=== PATIENT | male | born 1965 | race African-American/Black ===

== ENCOUNTER 2019-12-17 08:34 | Emergency (ER) | payer SELFPAY ==
[~2019-12-17] VITALS: Ht 167.6 cm; Wt 82.6 kg
[2019-12-17 09:43] LABS: Alanine Aminotransferase 22 U/L (16-61); Albumin 4.6 g/dL (3.4-5.0); Anion Gap 9 (5-15); Aspartate Aminotransferase 19 U/L (15-37); BUN/Creatinine Ratio 7.5; Blood Urea Nitrogen 13 mg/dL (7-18); Calcium 8.9 mg/dL (8.5-10.1); Carbon Dioxide 21 mmol/L (21-32); Chloride 108 mmol/L (98-107); GFR African American 53 mL/min; GFR Non-African American 44 mL/min; Glucose 136 mg/dL (74-106); Potassium 4.1 mmol/L (3.5-5.1); Sodium 138 mmol/L (136-145)
[2019-12-17 09:48] LABS: Alkaline Phosphatase 51 U/L (45-117); Bilirubin, Total 1.4 mg/dL (0.2-1.0); INR 1.16 (0.9-1.15); Partial Thromboplastin Time 28.6 sec (23.64-32.05); Total Protein 8.1 g/dL (6.4-8.2)
[2019-12-17] MEDS ORDERED: ONDANSETRON HCL 4 MG/2 ML VIAL IV ONE ×2 (10:00→15:15)
[2019-12-17] MEDS ORDERED: MORPHINE SULF INJ 2 MG/ML SYRINGE 1ML IV ONE ×2 (10:00→15:15)
[2019-12-17 10:07] LABS: Basophils # (auto) 0 10 ^3/uL (0-0.2); Basophils % (auto) 0.5 % (0.0-2.0); Eosinophils # (auto) 0.2 10 ^3/uL (0-0.8); Eosinophils % (auto) 1.9 % (0.0-7.0); Hematocrit 48.9 % (41.0-53.0); Hemoglobin 15.9 g/dL (13.5-17.5); Lymphocytes # (auto) 1.1 10 ^3/uL (0.4-5.4); Lymphocytes % (auto) 12.5 % (10.0-50.0); Mean Corpuscular Hemoglobin 30.2 pg (28.0-32.0); Mean Corpuscular Hgb Conc. 32.5 g/dL (32.0-36.0); Monocytes # (auto) 0.6 10 ^3/uL (0-1.3); Monocytes % (auto) 6.6 % (0.0-12.0); Neutrophils # (auto) 6.6 10 ^3/uL (1.6-8.6); Neutrophils % (auto) 78.5 % (37.0-80.0); Platelet Count (auto) 174 10^3/uL (140-450); Red Blood Cells 5.26 10^6/uL (4.5-5.90); Red Cell Distribution Width 14.3 % (11.8-14.3); White Blood Cell 8.5 10^3/uL (4.4-10.8)
[2019-12-17] MEDS ORDERED: KETOROLAC TROMETH 30 MG/ML 1ML VIAL IV ONE (12:00)
[2019-12-17 14:02] LABS: Urine Bacteria NONE SEEN /hpf (None Seen); Urine Blood TRACE /uL (Negative); Urine Budding Yeast OCCASIONAL /hpf (None Seen); Urine Mucus FEW (None Seen); Urine Specific Gravity 1.025 (1.001-1.035); Urine WBC 1 /hpf (0 - 3)
[2019-12-17] MEDS ORDERED: LABETALOL HCL 5 MG/ML 4ML SYRINGE IV ONE (16:00)
[2019-12-17 16:51] VITALS: BP 122/103
[2019-12-24] MEDS ORDERED: ASPI-543 PO (18:26)
[2019-12-24] MEDS ORDERED: CYCL10TA6 PO (18:26)
== END 2019-12-17 17:02 | disposition home or self-care (01) ==
LOC: ER 08:34
DX: R07.89 Other chest pain (principal); M47.816 Spondylosis without myelopathy or radiculopathy, lumbar region; I69.354 Hemiplegia and hemiparesis following cerebral infarction affecting left non-dominant side; I12.9 Hypertensive chronic kidney disease with stage 1 through stage 4 chronic kidney disease, or unspecified chronic kidney disease; N18.3 Chronic kidney disease, stage 3 (moderate); E78.5 Hyperlipidemia, unspecified; F12.10 Cannabis abuse, uncomplicated
CPT/HCPCS: 36415; 71046; 72100; 80053; 81001; 84484; 85025; 85610; 85730; 93005; 96374; 96375; 96376; 99285; J1885; J2270; J2405; J3490

== ENCOUNTER 2019-12-23 13:28 | Inpatient (IN) | payer MEDICARE ==
[~2019-12-23] VITALS: Ht 167.6 cm; Wt 90.5 kg
[2019-12-23] MEDS ORDERED: ASPirin 81 mg TAB PO ONE (13:45)
[2019-12-23 14:46] LABS: Basophils # (auto) 0 10 ^3/uL (0-0.2); Basophils % (auto) 0.5 % (0.0-2.0); Eosinophils # (auto) 0.3 10 ^3/uL (0-0.8); Eosinophils % (auto) 4.3 % (0.0-7.0); Hematocrit 41.9 % (41.0-53.0); Lymphocytes # (auto) 1.4 10 ^3/uL (0.4-5.4); Lymphocytes % (auto) 20.8 % (10.0-50.0); Mean Corpuscular Hemoglobin 30.8 pg (28.0-32.0); Mean Corpuscular Hgb Conc. 33.4 g/dL (32.0-36.0); Mean Corpuscular Volume 92.2 fL (80.0-100.0); Monocytes # (auto) 0.5 10 ^3/uL (0-1.3); Monocytes % (auto) 7.1 % (0.0-12.0); Neutrophils # (auto) 4.6 10 ^3/uL (1.6-8.6); Neutrophils % (auto) 67.3 % (37.0-80.0); Platelet Count (auto) 147 10^3/uL (140-450); Red Blood Cells 4.55 10^6/uL (4.5-5.90); Red Cell Distribution Width 14.1 % (11.8-14.3); White Blood Cell 6.9 10^3/uL (4.4-10.8)
[2019-12-23 15:06] LABS: Albumin 4.2 g/dL (3.4-5.0); Calcium 8.5 mg/dL (8.5-10.1); Potassium 3.9 mmol/L (3.5-5.1)
[2019-12-23 15:14] LABS: BUN/Creatinine Ratio 11.2; Bilirubin, Total 0.9 mg/dL (0.2-1.0); Total Protein 7.5 g/dL (6.4-8.2)
[2019-12-23] MEDS ORDERED: SODIUM CHLORIDE 0.9% 1,000 ML IV ONE ×2 (15:33→16:15)
[2019-12-23 16:41] LABS: INR 1.13 (0.9-1.15); Partial Thromboplastin Time 28.5 sec (23.64-32.05)
[2019-12-23] MEDS ORDERED: LABETALOL HCL 5 MG/ML 4ML SYRINGE IV ONE (17:15)
[2019-12-23] MEDS ORDERED: HEPARIN SODIUM (PORCINE) 5000 UNITS/ML 1ML VIAL IV ONE (17:30)
[2019-12-23] MEDS ORDERED: NITROGLYCERIN 0.4 MG SL TAB SL ONE (17:30)
[2019-12-23] MEDS ORDERED: ONDANSETRON HCL 4 MG/2 ML VIAL IV ONE (17:30)
[2019-12-23] MEDS ORDERED: MORPHINE SULF INJ 2 MG/ML SYRINGE 1ML IV ONE (17:30)
[2019-12-23] MEDS ORDERED: NITROGLYCERIN 0.4 MG SL TAB SL PRN (18:00)
[2019-12-23] MEDS ORDERED: traMADol HCL 50 MG TAB PO PRN (18:00)
[2019-12-23] MEDS ORDERED: LABETALOL HCL 5 MG/ML ML 20ML VIAL IV PRN (18:00)
[2019-12-23] MEDS ORDERED: MORPHINE SULF INJ 2 MG/ML SYRINGE 1ML IV PRN ×2 (18:00)
[2019-12-23] MEDS ORDERED: ACETAMINOPHEN 500 MG TAB PO PRN (18:00)
[2019-12-23] MEDS ORDERED: TEMAZEPAM 15 MG CAP PO PRN (18:00)
[2019-12-23 19:22] LABS: Basophils # (auto) 0 10 ^3/uL (0-0.2); Basophils % (auto) 0.6 % (0.0-2.0); Eosinophils # (auto) 0.3 10 ^3/uL (0-0.8); Eosinophils % (auto) 4.8 % (0.0-7.0); Hematocrit 42.4 % (41.0-53.0); Lymphocytes # (auto) 1.6 10 ^3/uL (0.4-5.4); Lymphocytes % (auto) 23.2 % (10.0-50.0); Mean Corpuscular Hgb Conc. 33.1 g/dL (32.0-36.0); Mean Corpuscular Volume 93.6 fL (80.0-100.0); Monocytes # (auto) 0.5 10 ^3/uL (0-1.3); Monocytes % (auto) 7.3 % (0.0-12.0); Neutrophils # (auto) 4.4 10 ^3/uL (1.6-8.6); Neutrophils % (auto) 64.1 % (37.0-80.0); Platelet Count (auto) 139 10^3/uL (140-450); Red Blood Cells 4.53 10^6/uL (4.5-5.90); White Blood Cell 6.9 10^3/uL (4.4-10.8)
[2019-12-23 19:31] LABS: INR 1.13 (0.9-1.15); Partial Thromboplastin Time 28.1 sec (23.64-32.05)
[2019-12-23 19:36] LABS: Albumin 4.1 g/dL (3.4-5.0); Calcium 8.5 mg/dL (8.5-10.1); Potassium 4.1 mmol/L (3.5-5.1)
[2019-12-23 19:44] LABS: BUN/Creatinine Ratio 10.8; Bilirubin, Total 0.7 mg/dL (0.2-1.0); CRP High Sensitivity 0.06 mg/dL (< 0.3); Total Protein 7.3 g/dL (6.4-8.2)
[2019-12-23] MEDS: HEPARIN DRIP/D5W 100UNITS/ML 250 ML IV SCH (19:52)
[2019-12-23 20:25] LABS: Urine Bacteria FEW /hpf (None Seen); Urine Blood Negative /uL (Negative); Urine Hyaline Cast FEW /lpf (0 - 2); Urine Specific Gravity 1.019 (1.001-1.035); Urine WBC 2 /hpf (0 - 3)
[2019-12-23] MEDS: SODIUM CHLORIDE 0.9% 1,000 ML IV SCH (20:38)
[2019-12-23 21:10] LABS: Amphetamine Screen, Urine NEGATIVE (NEGATIVE); Barbiturate Scree,Urine NEGATIVE (NEGATIVE); Benzodiazephine Screen, Urine NEGATIVE (NEGATIVE); Cannabinoid Screen, Urine POSITIVE (NEGATIVE); Cocaine Screen, Urine NEGATIVE (NEGATIVE); Opiate Scree,Urine NEGATIVE (NEGATIVE); Phencyclidine Screen, Urine NEGATIVE (NEGATIVE)
[2019-12-23 21:27] LABS: Alcohol, Urine < 3.0 mg/dL (0-10)
[2019-12-23] MEDS: ATORVASTATIN 20 MG TAB PO SCH (22:42)
[2019-12-23] MEDS: METOPROLOL TARTRATE 25 MG TAB PO SCH (22:43)
[2019-12-23] MEDS: FAMOTIDINE 20 MG TAB PO SCH (22:43)
[2019-12-23] MEDS ORDERED: ACETAMINOPHEN 325 MG TAB PO PRN (22:45)
[2019-12-23] MEDS ORDERED: MORPHINE SULF INJ 2 MG/ML SYRINGE 1ML ONE (22:59)
[2019-12-24] MEDS: FAMOTIDINE 20 MG TAB PO SCH ×2 (00:26→21:54)
[2019-12-24] MEDS: METOPROLOL TARTRATE 25 MG TAB PO SCH ×3 (00:26→21:53)
[2019-12-24] MEDS: ATORVASTATIN 20 MG TAB PO SCH ×2 (00:27→21:50)
[2019-12-24] MEDS: OXYCODONE W/ ACETAMINOPHEN 5/325MG TABLET PO PRN ×3 (00:27→18:39)
[2019-12-24] MEDS: PROMETHAZINE HCL 25 MG/ML 1ML IV PRN ×2 (05:27→22:27)
[2019-12-24] MEDS: MORPHINE SULF INJ 2 MG/ML SYRINGE 1ML IV PRN ×3 (05:27→22:27)
[2019-12-24 07:02] LABS: Cholesterol 93 mg/dL (< 200); HDL Cholesterol 32 mg/dL (40-59); LDL Cholesterol 52 mg/dL (< 100); Triglycerides 75 mg/dL (< 150)
[2019-12-24 07:53] LABS: INR 1.21 (0.9-1.15)
[2019-12-24 07:56] LABS: Partial Thromboplastin Time > 139.0 sec (23.64-32.05)
[2019-12-24] MEDS: NITROGLYCERIN 0.2MG/HR TOPICAL PATCH TD SCH (10:07)
[2019-12-24] MEDS: ASPirin 81 mg TAB PO SCH (10:08)
[2019-12-24] MEDS ORDERED: CLOPIDOGREL BISULFATE 75 MG TAB PO ONE (13:00)
[2019-12-24 16:05] LABS: Basophils # (auto) 0 10 ^3/uL (0-0.2); Basophils % (auto) 0.5 % (0.0-2.0); Eosinophils # (auto) 0.3 10 ^3/uL (0-0.8); Eosinophils % (auto) 4.4 % (0.0-7.0); Hematocrit 39.6 % (41.0-53.0); Hemoglobin 12.9 g/dL (13.5-17.5); Lymphocytes # (auto) 1.3 10 ^3/uL (0.4-5.4); Lymphocytes % (auto) 21.9 % (10.0-50.0); Mean Corpuscular Hemoglobin 30.6 pg (28.0-32.0); Mean Corpuscular Hgb Conc. 32.7 g/dL (32.0-36.0); Mean Corpuscular Volume 93.6 fL (80.0-100.0); Monocytes # (auto) 0.3 10 ^3/uL (0-1.3); Monocytes % (auto) 5.9 % (0.0-12.0); Neutrophils # (auto) 3.9 10 ^3/uL (1.6-8.6); Neutrophils % (auto) 67.3 % (37.0-80.0); Platelet Count (auto) 111 10^3/uL (140-450); Red Blood Cells 4.23 10^6/uL (4.5-5.90); Red Cell Distribution Width 14.3 % (11.8-14.3); White Blood Cell 5.8 10^3/uL (4.4-10.8)
[2019-12-24 16:34] LABS: INR 1.14 (0.9-1.15)
[2019-12-24 16:38] LABS: Partial Thromboplastin Time 82.3 sec (23.64-32.05)
[2019-12-24] MEDS: SODIUM CHLORIDE 0.9% 1,000 ML IV SCH ×2 (17:58→20:40)
[2019-12-24] MEDS ORDERED: CYCL1TAB18 PO (18:26)
[2019-12-24] MEDS ORDERED: IBUP600T27 PO (18:26)
[2019-12-24] MEDS ORDERED: ALBU108A14 IN (18:26)
[2019-12-24] MEDS ORDERED: ATOR1TAB PO (18:26)
[2019-12-24] MEDS ORDERED: LISI-646 PO (18:26)
[2019-12-24] MEDS ORDERED: AMIT25TA9 PO (18:26)
[2019-12-24] MEDS ORDERED: DULO60CA PO (18:26)
[2019-12-24] MEDS ORDERED: ACET-1156 PO (18:26)
[2019-12-24] MEDS ORDERED: ASPI-404 PO (18:26)
[2019-12-24] MEDS ORDERED: METH750T3 PO (18:26)
[2019-12-24] MEDS ORDERED: MELO1TAB56 PO (18:26)
[2019-12-24] MEDS ORDERED: GABA300C10 PO (18:26)
[2019-12-24] MEDS ORDERED: CARV6.2551 PO (18:26)
[2019-12-24] MEDS ORDERED: HYDR-4833 PO (18:26)
[2019-12-24] MEDS ORDERED: AMLO5TAB15 PO (18:26)
[2019-12-24] MEDS ORDERED: OMEP20TA PO (18:26)
[2019-12-24 19:43] LABS: Basophils # (auto) 0 10 ^3/uL (0-0.2); Basophils % (auto) 0.4 % (0.0-2.0); Eosinophils # (auto) 0.4 10 ^3/uL (0-0.8); Eosinophils % (auto) 5.5 % (0.0-7.0); Hematocrit 39.2 % (41.0-53.0); Hemoglobin 12.8 g/dL (13.5-17.5); Lymphocytes # (auto) 1.4 10 ^3/uL (0.4-5.4); Lymphocytes % (auto) 21.3 % (10.0-50.0); Mean Corpuscular Hemoglobin 30.7 pg (28.0-32.0); Mean Corpuscular Hgb Conc. 32.7 g/dL (32.0-36.0); Monocytes # (auto) 0.5 10 ^3/uL (0-1.3); Monocytes % (auto) 7.3 % (0.0-12.0); Neutrophils # (auto) 4.2 10 ^3/uL (1.6-8.6); Neutrophils % (auto) 65.5 % (37.0-80.0); Nucleated Red Blood Cells % 0.1 %; Platelet Count (auto) 115 10^3/uL (140-450); Red Blood Cells 4.17 10^6/uL (4.5-5.90); Red Cell Distribution Width 14.2 % (11.8-14.3); White Blood Cell 6.4 10^3/uL (4.4-10.8)
[2019-12-24 20:00] VITALS: BP 164/105
[2019-12-24] MEDS: HEPARIN DRIP/D5W 100UNITS/ML 250 ML IV SCH (21:28)
[2019-12-24] MEDS: RANOLAZINE ER 500 MG TAB PO SCH (21:54)
[2019-12-24 22:00] VITALS: BP 164/105
[2019-12-24 23:04] LABS: INR 1.13 (0.9-1.15); Partial Thromboplastin Time 53.5 sec (23.64-32.05)
[2019-12-24 23:14] LABS: Protein, Urine 12.6 mg/dL (0.0-11.9)
[2019-12-24 23:17] LABS: Urine Bacteria FEW /hpf (None Seen); Urine Blood Negative /uL (Negative); Urine Hyaline Cast FEW /lpf (0 - 2); Urine Mucus FEW (None Seen); Urine Specific Gravity 1.015 (1.001-1.035); Urine WBC 1 /hpf (0 - 3)
[2019-12-24] MEDS: hydrALAZINE HCL 25 MG TAB PO PRN (23:47)
[2019-12-25] MEDS: MORPHINE SULF INJ 2 MG/ML SYRINGE 1ML IV PRN ×2 (03:35→15:17)
[2019-12-25 05:00] VITALS: BP 156/102
[2019-12-25 05:52] LABS: Basophils # (auto) 0 10 ^3/uL (0-0.2); Basophils % (auto) 0.6 % (0.0-2.0); Eosinophils # (auto) 0.4 10 ^3/uL (0-0.8); Eosinophils % (auto) 5.4 % (0.0-7.0); Hematocrit 42.7 % (41.0-53.0); Hemoglobin 14.5 g/dL (13.5-17.5); Lymphocytes # (auto) 1.4 10 ^3/uL (0.4-5.4); Lymphocytes % (auto) 18.9 % (10.0-50.0); Mean Corpuscular Hemoglobin 31.2 pg (28.0-32.0); Mean Corpuscular Hgb Conc. 33.9 g/dL (32.0-36.0); Mean Corpuscular Volume 91.9 fL (80.0-100.0); Monocytes # (auto) 0.5 10 ^3/uL (0-1.3); Monocytes % (auto) 7.4 % (0.0-12.0); Neutrophils # (auto) 4.9 10 ^3/uL (1.6-8.6); Neutrophils % (auto) 67.7 % (37.0-80.0); Nucleated Red Blood Cells % 0.1 %; Platelet Count (auto) 129 10^3/uL (140-450); Red Blood Cells 4.65 10^6/uL (4.5-5.90); Red Cell Distribution Width 13.9 % (11.8-14.3); White Blood Cell 7.2 10^3/uL (4.4-10.8)
[2019-12-25 06:21] LABS: Potassium 3.7 mmol/L (3.5-5.1)
[2019-12-25 06:27] LABS: BUN/Creatinine Ratio 9.8; Calcium 8.5 mg/dL (8.5-10.1); Phosphorus 2.2 mg/dL (2.5-4.90)
[2019-12-25 06:42] LABS: INR 1.06 (0.9-1.15); Partial Thromboplastin Time 41.6 sec (23.64-32.05)
[2019-12-25 09:00] VITALS: BP 186/94
[2019-12-25] MEDS: ASPirin 81 mg TAB PO SCH (09:17)
[2019-12-25] MEDS: METOPROLOL TARTRATE 25 MG TAB PO SCH (09:18)
[2019-12-25] MEDS: RANOLAZINE ER 500 MG TAB PO SCH (09:19)
[2019-12-25] MEDS: NITROGLYCERIN 0.2MG/HR TOPICAL PATCH TD SCH (09:21)
[2019-12-25] MEDS: SODIUM CHLORIDE 0.9% 1,000 ML IV SCH (09:27)
[2019-12-25] MEDS ORDERED: CLOPIDOGREL BISULFATE 75 MG TAB PO ONE (10:00)
[2019-12-25] MEDS: ISOSORBIDE DINITRATE 10 MG TAB PO SCH (12:00)
[2019-12-25] MEDS: hydrALAZINE HCL 25 MG TAB PO PRN (12:24)
[2019-12-25 13:00] VITALS: BP 208/105
[2019-12-25 13:58] LABS: INR 1.08 (0.9-1.15); Partial Thromboplastin Time 35.9 sec (23.64-32.05)
[2019-12-25 15:21] VITALS: BP 154/99
[2019-12-26] MEDS ORDERED: CLOPIDOGREL BISULFATE 75 MG TAB PO SCH (10:00)
== END 2019-12-25 14:08 | disposition home or self-care (01) | DRG 280 ==
LOC: ER 13:28 → TELE 13:29 → TELE-WESTW 12-24 19:51
PROVIDERS: ADMIT Internal Medicine; ATTEND Internal Medicine
DX: I21.4 Non-ST elevation (NSTEMI) myocardial infarction (principal); N17.0 Acute kidney failure with tubular necrosis; N18.4 Chronic kidney disease, stage 4 (severe); I69.354 Hemiplegia and hemiparesis following cerebral infarction affecting left non-dominant side; N39.0 Urinary tract infection, site not specified; E78.5 Hyperlipidemia, unspecified; F12.90 Cannabis use, unspecified, uncomplicated; D63.8 Anemia in other chronic diseases classified elsewhere; I13.10 Hypertensive heart and chronic kidney disease without heart failure, with stage 1 through stage 4 chronic kidney disease, or unspecified chronic kidney disease; E79.0 Hyperuricemia without signs of inflammatory arthritis and tophaceous disease; E83.39 Other disorders of phosphorus metabolism; G89.4 Chronic pain syndrome; I73.9 Peripheral vascular disease, unspecified; Z79.02 Long term (current) use of antithrombotics/antiplatelets; Z82.49 Family history of ischemic heart disease and other diseases of the circulatory system; Z79.899 Other long term (current) drug therapy
CPT/HCPCS: 36415; 70450; 71046; 76775; 80048; 80053; 80061; 80307; 81001; 82550; 82570; 82962; 83735; 83880; 84100; 84156; 84300; 84443; 84484; 84550; 85025; 85379; 85610; 85652; 85730; 86141; 87081; 87086; 93005; 93306; 93925; 93971; 99291; G0378; J2405

== ENCOUNTER 2020-01-07 16:17 | Emergency (ER) | payer SELFPAY ==
[~2020-01-07] VITALS: Ht 167.6 cm; Wt 82.6 kg
[~2020-01-07 16:17] MED LIST: ACET-1156 PO; ALBU108A14 IN; AMIT25TA9 PO; AMLO5TAB15 PO; ASPI-543 PO; ATOR1TAB PO; CARV6.2551 PO; CYCL10TA6 PO; DULO60CA PO; GABA300C10 PO; HYDR-4833 PO; IBUP600T27 PO; LISI-646 PO; MELO1TAB56 PO; METH750T3 PO; OMEP20TA PO
[2020-01-07 16:31] VITALS: BP 172/104
[2020-01-07 18:36] LABS: Basophils # (auto) 0 10 ^3/uL (0-0.2); Basophils % (auto) 0.5 % (0.0-2.0); Eosinophils # (auto) 0.3 10 ^3/uL (0-0.8); Eosinophils % (auto) 5.6 % (0.0-7.0); Hematocrit 39.7 % (41.0-53.0); Hemoglobin 12.9 g/dL (13.5-17.5); Lymphocytes # (auto) 1.2 10 ^3/uL (0.4-5.4); Lymphocytes % (auto) 20.6 % (10.0-50.0); Mean Corpuscular Hemoglobin 30.1 pg (28.0-32.0); Mean Corpuscular Hgb Conc. 32.5 g/dL (32.0-36.0); Mean Corpuscular Volume 92.6 fL (80.0-100.0); Monocytes # (auto) 0.4 10 ^3/uL (0-1.3); Monocytes % (auto) 6.3 % (0.0-12.0); Neutrophils # (auto) 3.9 10 ^3/uL (1.6-8.6); Platelet Count (auto) 183 10^3/uL (140-450); Red Blood Cells 4.29 10^6/uL (4.5-5.90); Red Cell Distribution Width 13.9 % (11.8-14.3); White Blood Cell 5.9 10^3/uL (4.4-10.8)
[2020-01-07 18:51] LABS: INR 1.01 (0.9-1.15); Partial Thromboplastin Time 27.7 sec (23.64-32.05)
[2020-01-07 18:52] LABS: Albumin 4.2 g/dL (3.4-5.0); Anion Gap 5 (5-15); Blood Urea Nitrogen 20 mg/dL (7-18); Calcium 8.5 mg/dL (8.5-10.1); Carbon Dioxide 25 mmol/L (21-32); Chloride 109 mmol/L (98-107); Glucose 110 mg/dL (74-106); Potassium 3.7 mmol/L (3.5-5.1); Sodium 139 mmol/L (136-145)
[2020-01-07 18:58] LABS: Alanine Aminotransferase 23 U/L (16-61); Alkaline Phosphatase 47 U/L (45-117); Aspartate Aminotransferase 14 U/L (15-37); BUN/Creatinine Ratio 10.2; Bilirubin, Total 0.6 mg/dL (0.2-1.0); GFR African American 46 mL/min; GFR Non-African American 38 mL/min; Total Protein 7.6 g/dL (6.4-8.2)
== END 2020-01-07 21:05 | disposition left against medical advice (07) ==
LOC: ER 16:17
DX: R07.89 Other chest pain (principal); R53.83 Other fatigue; E78.5 Hyperlipidemia, unspecified; I10 Essential (primary) hypertension; M25.552 Pain in left hip; Z79.899 Other long term (current) drug therapy; Z79.82 Long term (current) use of aspirin
CPT/HCPCS: 36415; 71045; 73502; 80053; 83880; 84484; 85025; 85379; 85610; 85730; 93005

== ENCOUNTER 2020-01-09 08:50 | Inpatient (IN) | payer MEDICARE ==
[~2020-01-09] VITALS: Ht 167.6 cm; Wt 86.5 kg
[~2020-01-09 08:50] MED LIST changes: +ASPI-404 PO; -ASPI-543 PO; -CYCL10TA6 PO; +CYCL1TAB18 PO
[2020-01-09 09:14] LABS: Basophils # (auto) 0 10 ^3/uL (0-0.2); Basophils % (auto) 0.5 % (0.0-2.0); Eosinophils # (auto) 0.3 10 ^3/uL (0-0.8); Eosinophils % (auto) 4.5 % (0.0-7.0); Hematocrit 39.6 % (41.0-53.0); Hemoglobin 13.1 g/dL (13.5-17.5); Lymphocytes % (auto) 14.4 % (10.0-50.0); Mean Corpuscular Hemoglobin 30.7 pg (28.0-32.0); Mean Corpuscular Hgb Conc. 33.2 g/dL (32.0-36.0); Mean Corpuscular Volume 92.5 fL (80.0-100.0); Monocytes # (auto) 0.4 10 ^3/uL (0-1.3); Neutrophils # (auto) 4.9 10 ^3/uL (1.6-8.6); Neutrophils % (auto) 74.6 % (37.0-80.0); Nucleated Red Blood Cells % 0.1 %; Platelet Count (auto) 184 10^3/uL (140-450); Red Blood Cells 4.28 10^6/uL (4.5-5.90); Red Cell Distribution Width 14.4 % (11.8-14.3); White Blood Cell 6.6 10^3/uL (4.4-10.8)
[2020-01-09 09:29] LABS: INR 1.08 (0.9-1.15); Partial Thromboplastin Time 28.8 sec (23.64-32.05)
[2020-01-09] MEDS ORDERED: ASPirin 81 mg TAB PO ONE (09:30)
[2020-01-09 09:32] LABS: Alanine Aminotransferase 21 U/L (16-61); Albumin 4.1 g/dL (3.4-5.0); Anion Gap 6 (5-15); Aspartate Aminotransferase 10 U/L (15-37); BUN/Creatinine Ratio 9.7; Blood Urea Nitrogen 17 mg/dL (7-18); Calcium 8.3 mg/dL (8.5-10.1); Carbon Dioxide 25 mmol/L (21-32); Chloride 108 mmol/L (98-107); GFR African American 53 mL/min; GFR Non-African American 44 mL/min; Glucose 87 mg/dL (74-106); Potassium 3.8 mmol/L (3.5-5.1); Sodium 139 mmol/L (136-145)
[2020-01-09 09:37] LABS: Alkaline Phosphatase 45 U/L (45-117); Bilirubin, Total 0.6 mg/dL (0.2-1.0); Total Protein 7.4 g/dL (6.4-8.2)
[2020-01-09] MEDS ORDERED: ONDANSETRON HCL 4 MG/2 ML VIAL IV ONE (10:30)
[2020-01-09] MEDS ORDERED: MORPHINE SULFATE 4 MG/ML SYR/VIAL IV ONE (10:30)
[2020-01-09] MEDS ORDERED: MORPHINE SULF INJ 2 MG/ML SYRINGE 1ML IV ONE (10:45)
[2020-01-09] MEDS ORDERED: cloNIDine HCL 0.1 MG TAB PO ONE (11:15)
[2020-01-09] MEDS ORDERED: NITROGLYCERIN 0.4 MG SL TAB SL ONE (11:15)
[2020-01-09] MEDS ORDERED: NITROGLYCERIN 0.4 MG SL TAB SL PRN (12:00)
[2020-01-09] MEDS ORDERED: MORPHINE SULF INJ 2 MG/ML SYRINGE 1ML IV PRN (12:00)
[2020-01-09] MEDS ORDERED: ONDANSETRON HCL 4 MG/2 ML VIAL IV PRN (12:00)
[2020-01-09] MEDS ORDERED: ACETAMINOPHEN 500 MG TAB PO PRN (12:00)
[2020-01-09] MEDS: SODIUM CHLORIDE 0.9% 1,000 ML IV SCH (12:15)
[2020-01-09] MEDS: HYDROcodone-ACET 5/325MG TAB PO PRN (12:19)
[2020-01-09] MEDS ORDERED: KETOROLAC TROMETH 30 MG/ML 1ML VIAL IV ONE (13:30)
[2020-01-09] MEDS: GABAPENTIN 300 MG CAP PO SCH ×2 (14:13→21:49)
[2020-01-09] MEDS: MORPHINE SULF INJ 2 MG/ML SYRINGE 1ML IV PRN ×3 (14:46→21:50)
--- NOTE | 2020-01-09 16:55 | NUR ---
PATIENT ARRIVED TO ROOM VIA WHEELCHAIR FROM ER. PATIENT ORIENTED TO ROOM. CALL LIGHT PLACED BEDSIDE, BED IN LOCKED AND LOWEST POSITION WITH 2X SIDE RAILS UP. PATIENT VS 159/100, 60, 99, 16, 97.6. NO COMPLAINTS OF DISCOMFORT AT THIS TIME. WILL CONTINUE TO MONITOR Q1H AND PRN.
[2020-01-09 17:00] VITALS: BP 159/100
[2020-01-09 17:02] VITALS: BP 171/102
[2020-01-09] MEDS: hydrALAZINE HCL 20 MG/ML VL IV PRN (17:35)
--- NOTE | 2020-01-09 17:35 | NUR ---
BLOOD PRESSURE PATIENT BLOOD PRESSURE 159/100. ADMINISTERING PRN APRESOLINE. WILL CONTINUE TO MONITOR
[2020-01-09 17:37] VITALS: BP 159/100
--- NOTE | 2020-01-09 18:35 | NUR ---
BLOOD PRESSURE REASSESSMENT BLOOD PRESSURE IS NOW 128/78 AFTER RECEIVING APRESOLINE
--- NOTE | 2020-01-09 19:45 | NUR ---
Opening Shift Note Assumed care of patient, patient is AOx4. No S/S of distress/SOB or pain. Patient repositioned for comfort. Instructed patient on his POC and to call for assist, patient verbalized understanding and in agreement. Call light within reach and able to use. Will continue to monitor for changes. Bed in lowest position, HOB at 30 degrees, side rails up x2.
[2020-01-09] MEDS: ATORVASTATIN 20 MG TAB PO SCH (21:48)
[2020-01-09] MEDS: ACETYLCYSTEINE ORAL for CIN 20%(200MG/ML) 4ML PO SCH (21:49)
[2020-01-09] MEDS: METOPROLOL TARTRATE 25 MG TAB PO SCH (21:49)
--- NOTE | 2020-01-09 21:50 | NUR ---
Patient Complains of Pain Patient complains of pain of 9/10 on whole left side (arm and leg). Patient given pain medication as prescribed. Will continue to monitor.
[2020-01-09 22:00] VITALS: BP 132/69
[2020-01-10] MEDS ORDERED: SODIUM CHLORIDE 0.9% 1,000 ML IV ONE ×2 (00:01→16:15)
[2020-01-10] MEDS: HYDROcodone-ACET 5/325MG TAB PO PRN ×2 (00:38→09:25)
--- NOTE | 2020-01-10 00:38 | NUR ---
Patient Complains of Pain Patient still uncomfortable and requested [place] as prescribed for pain. Will continue to monitor patient.
[2020-01-10] MEDS: MORPHINE SULF INJ 2 MG/ML SYRINGE 1ML IV PRN ×5 (02:50→22:20)
[2020-01-10 04:30] VITALS: BP 154/94
--- NOTE | 2020-01-10 05:57 | NUR ---
Patient Moved From RM#214-A to RM#216-B All belongings moved with patient to room 216-B. Patient tolerated move well via wheelchair.
[2020-01-10] MEDS: GABAPENTIN 300 MG CAP PO SCH ×3 (06:00→22:19)
[2020-01-10 06:07] LABS: Basophils # (auto) 0 10 ^3/uL (0-0.2); Basophils % (auto) 0.4 % (0.0-2.0); Eosinophils # (auto) 0.3 10 ^3/uL (0-0.8); Eosinophils % (auto) 4.8 % (0.0-7.0); Hematocrit 34.3 % (41.0-53.0); Hemoglobin 11.5 g/dL (13.5-17.5); Lymphocytes # (auto) 1.6 10 ^3/uL (0.4-5.4); Lymphocytes % (auto) 24.3 % (10.0-50.0); Mean Corpuscular Hemoglobin 31.1 pg (28.0-32.0); Mean Corpuscular Hgb Conc. 33.6 g/dL (32.0-36.0); Mean Corpuscular Volume 92.6 fL (80.0-100.0); Monocytes # (auto) 0.4 10 ^3/uL (0-1.3); Neutrophils # (auto) 4.3 10 ^3/uL (1.6-8.6); Neutrophils % (auto) 64.5 % (37.0-80.0); Nucleated Red Blood Cells % 0.1 %; Platelet Count (auto) 170 10^3/uL (140-450); Red Cell Distribution Width 14.8 % (11.8-14.3); White Blood Cell 6.6 10^3/uL (4.4-10.8)
[2020-01-10 06:11] LABS: INR 1.16 (0.9-1.15); Partial Thromboplastin Time 29.1 sec (23.64-32.05)
[2020-01-10 06:29] LABS: Potassium 3.9 mmol/L (3.5-5.1)
[2020-01-10 06:42] LABS: BUN/Creatinine Ratio 9.4; Calcium 8.4 mg/dL (8.5-10.1)
--- NOTE | 2020-01-10 07:00 | NUR ---
Pain medication for left leg and left arm pain. Given medication as prescribed. Will continue to monitor.
--- NOTE | 2020-01-10 07:15 | NUR ---
End of Shift Note Endorsed care to dayshift nurse. At this time patient has no s/s of distress or SOB.
[2020-01-10 09:00] VITALS: BP 160/82
[2020-01-10] MEDS: FAMOTIDINE 20 MG TAB PO SCH (09:25)
[2020-01-10] MEDS: LISINOPRIL 10 MG TAB PO SCH (09:25)
[2020-01-10] MEDS: METOPROLOL TARTRATE 25 MG TAB PO SCH ×2 (09:26→22:20)
--- NOTE | 2020-01-10 09:26 | NUR ---
Regarding Mucomyst per Laura rn in cath okay to give mucomyst PO with OJ prior to LHC. Will give as ordered and bring pt down to labor operator by [id number].
[2020-01-10] MEDS: ACETYLCYSTEINE ORAL for CIN 20%(200MG/ML) 4ML PO SCH ×2 (09:40→23:12)
[2020-01-10] MEDS ORDERED: ASPirin-EC 81 mg tab PO SCH (10:00)
[2020-01-10 11:15] VITALS: BP 185/123
[2020-01-10] MEDS: hydrALAZINE HCL 20 MG/ML VL IV PRN ×2 (11:35→17:11)
--- NOTE | 2020-01-10 11:55 | NUR ---
PROCEDURE Pt taken to [facility] for Left Heart Catheterization procedure. Consents signed and chart given to MASSIEL Rivas. Pt's respirations are even and unlabored, no distress noted at this time. Pt has been medicated with Apresoline and Morphine as ordered and Evelyn aware of pt's increased BP and will assess. All belongings placed in side business continuity coordinator pt's room prior to transport. Will resume care on arrival.
[2020-01-10] MEDS ORDERED: IODIXANOL 320MG/ML 100ML BTL IV ONE ×2 (14:08→14:58)
[2020-01-10] MEDS ORDERED: LIDOCAINE 2%HCL (LOCAL ANESTH.) INJ 20ML MDV ONE (14:08)
[2020-01-10] MEDS ORDERED: fentaNYL CITRATE 100 MCG/2 ML VL ONE (14:15)
[2020-01-10] MEDS ORDERED: ANGIOMAX 250 MG VIAL IV ONE (14:15)
[2020-01-10] MEDS ORDERED: MIDAZOLAM HCL 1MG/1ML-2 ML VIAL ONE (14:15)
[2020-01-10] MEDS ORDERED: SODIUM CHL 0.9% 50 ML ONE (14:15)
[2020-01-10] MEDS ORDERED: VERAPAMIL 2.5MG/ML INJ 2ML VIAL IV ONE (14:16)
[2020-01-10] MEDS ORDERED: HEPARIN SODIUM (PORCINE) 5000 UNITS/ML 1ML VIAL ONE (14:16)
[2020-01-10] MEDS ORDERED: hydrALAZINE HCL 20 MG/ML VL ONE (15:05)
[2020-01-10] MEDS ORDERED: ONDANSETRON HCL 4 MG/2 ML VIAL IV PRN (16:15)
--- NOTE | 2020-01-10 16:50 | NUR ---
Patient back from crime laboratory analyst report received from Evelyn osuna she states patient is a candidate for MVD she states Dr. Man is communicating with Dr. Martini but no new orders for transfer received at this time. Per Evelyn osuna, start removing 2ml air from vasc band now and q15min until fully deflated. Patient's BP noted increased and req pain meds. Will medicate as ordered. Vasc band noted to right wrist with old drainage. No s/s of hematoma or bleeding noted at this time. Will cont to monitor.
[2020-01-10 17:00] VITALS: BP 160/87
--- NOTE | 2020-01-10 17:11 | NUR ---
Spoke to Cardiac Surgeon Dr Martini. He states he has talked to Dr. Man and patient will be transferred tomorrow to [facility]. He states to make sure copy of CD gets sent with patient. states he has notified his case management team and they will be contacting [facility] case investigator tomorrow for transfer. Dr. Martini provided his cellphone number [phone] and states he can be contacted for questions. This rn spoke to Dr. Man and new orders received for social service consult for higher level care transfer and Dr. Man states that he will talk to Dr. Carlton tomorrow and update him on POC. Yulia behavioral health case manager paged to notify
--- NOTE | 2020-01-10 17:20 | NUR ---
Opening shift note Assumed care of patient who is A&Ox4. Respirations even and non-labored with no s/s of distress. Discussed POC with patient who verbalized understanding. IVs patent and intact, running NS at 200. Vasc band dressing dry and intact with no signs of swelling or hematoma. Bed in lowest locked position with 2 side rails up. Call light within reach, will continue to monitor. Addendum: 01/11/20 at 0117 by JACQUELINE MACDONALD RN RN Wrong time: Assumed patient care at 1919
--- NOTE | 2020-01-10 19:15 | NUR ---
Patient care endorsed endorsed care to Sanam rn. Patient laying in bed in no acute distress or sob. Vasc band to right wrist complete removed after 2ml air were removed [id number] as ordered. 2X2 sterile gauze and tegaderm applied to site. No s/s of hematoma or bleeding noted. Radial pulses palpable bilat. Patient instructed to notify primary nursing if symptoms of bleeding occur he verbalized understanding. Call light within reach. Copy of CD placed in front of the chart and rn informed to endorse to oncoming nurse in the a.m. for transfer to higher level care hospital.
[2020-01-10] MEDS: SODIUM CHLORIDE 0.9% 1,000 ML IV SCH (21:20)
[2020-01-10] MEDS: ATORVASTATIN 20 MG TAB PO SCH (22:19)
--- NOTE | 2020-01-10 22:20 | NUR ---
Pain Patient c/o 03/04 generalized back pain. Administered 1 mg morphine per EMAR. Will continue to monitor.
--- NOTE | 2020-01-10 22:30 | NUR ---
TRANSFER PAPERWORK FAXED FAXED H&P, CONSULTS, FACE SHEET TO DAQUAN AT [facility].
--- NOTE | 2020-01-10 22:55 | NUR ---
Pain reassessed Patient resting with eyes closed, respirations even and non-labored with no s/s of distress. Will continue to monitor.
[2020-01-10 23:23] VITALS: BP 157/114
[2020-01-11] MEDS: MORPHINE SULF INJ 2 MG/ML SYRINGE 1ML IV PRN ×3 (03:27→12:33)
--- NOTE | 2020-01-11 03:27 | NUR ---
Pain Patient becoming restless with grimacing. Administered 1 mg morphine. Will continue to monitor.
--- NOTE | 2020-01-11 06:00 | NUR ---
Pain reassessed Patient resting with eyes closed, breathing even and non-labored with no s/s of distress, grimacing, or restlessness. Will continue to monitor.
[2020-01-11] MEDS: GABAPENTIN 300 MG CAP PO SCH ×2 (06:19→13:59)
[2020-01-11 06:23] VITALS: BP 159/93
--- NOTE | 2020-01-11 07:20 | NUR ---
Closing shift note Patient resting without s/s of distress or SOB. Endorsed care to day shift RN.
[2020-01-11 09:00] VITALS: BP 160/101
--- NOTE | 2020-01-11 09:22 | NUR ---
Received a call from [facility] # [phone] [facility] regarding transfer. Informed Yulia and she will contact her soon.
--- NOTE | 2020-01-11 09:23 | NUR ---
I called [facility] and left message asking about bed availability. I called [facility] and attempted to reach bed control to ask about bed availability, unable to leave a message. I called [facility]-no beds available at this time. Per [facility] they do not have cardio-thoracic services available.
[2020-01-11] MEDS: FAMOTIDINE 20 MG TAB PO SCH (09:24)
[2020-01-11] MEDS: METOPROLOL TARTRATE 25 MG TAB PO SCH (09:24)
[2020-01-11] MEDS: LISINOPRIL 10 MG TAB PO SCH (09:24)
[2020-01-11] MEDS: ACETYLCYSTEINE ORAL for CIN 20%(200MG/ML) 4ML PO SCH (09:28)
--- NOTE | 2020-01-11 10:36 | NUR ---
1037 01/11/20 - Contacted [facility] renal case manager at [phone] spoke with Samanta, who stated patient would be going to [facility] room 138- B , nurse's station number is [phone]. [facility] warp picker time has been scheduled for 12PM. Informed nurse caring for patient pt will be going to [facility] room 138 A
[2020-01-11 12:30] VITALS: BP 151/92
--- NOTE | 2020-01-11 14:15 | NUR ---
Discharge instructions given as ordered. Encourage to follow up with PCP, patient is being transfer to [facility] as instructed. All questions and concerns addressed. Patient verbalized understanding. Telemetry unit returned to ICU. Patient taken to vehicle via gurney with all personal belongings, accompanied by [facility] staff. No distress noted at time of departure.
== END 2020-01-11 14:15 | disposition short-term general hospital (02) | DRG 287 ==
LOC: ER 08:50 → TELE 08:51 → TELE-CENTR 16:53
PROVIDERS: ADMIT Nurse Practitioner Acute Care; ATTEND Family Medicine
PROC: 4A023N7 Measurement of Cardiac Sampling and Pressure, Left Heart, Percutaneous Approach (ICD-10-PCS; principal; 2020-01-10)
PROC: B211YZZ Fluoroscopy of Multiple Coronary Arteries using Other Contrast (ICD-10-PCS; 2020-01-10)
PROC: B215YZZ Fluoroscopy of Left Heart using Other Contrast (ICD-10-PCS; 2020-01-10)
PROC: B240ZZ3 Ultrasonography of Single Coronary Artery, Intravascular (ICD-10-PCS; 2020-01-10)
DX: I24.9 Acute ischemic heart disease, unspecified (principal); N18.3 Chronic kidney disease, stage 3 (moderate); E78.00 Pure hypercholesterolemia, unspecified; M19.90 Unspecified osteoarthritis, unspecified site; G89.29 Other chronic pain; I70.0 Atherosclerosis of aorta; M54.5 Low back pain; I12.9 Hypertensive chronic kidney disease with stage 1 through stage 4 chronic kidney disease, or unspecified chronic kidney disease; Z82.3 Family history of stroke; Z82.49 Family history of ischemic heart disease and other diseases of the circulatory system; Z86.73 Personal history of transient ischemic attack (TIA), and cerebral infarction without residual deficits; Z98.1 Arthrodesis status; Z79.899 Other long term (current) drug therapy; I25.2 Old myocardial infarction; W18.30XA Fall on same level, unspecified, initial encounter
CPT/HCPCS: 36415; 71045; 72170; 74176; 80048; 80053; 83735; 84484; 85025; 85379; 85610; 85730; 86141; 87081; 92978; 93005; 93458; 96361; 96374; 96375; 99152; 99153; G0378; J1885; J2250; J2405; Q9967